=== PATIENT | male | born 1985 | race Two or more races ===

== ENCOUNTER 2021-04-26 16:05 | Emergency (ER) | payer MEDICAID, OTHER ==
[~2021-04-26] VITALS: Ht 165.1 cm; Wt 68.0 kg
[2021-04-26 17:40] VITALS: BP 135/61
== END 2021-04-26 19:00 | disposition home or self-care (01) ==
LOC: ER 16:05
DX: J03.90 Acute tonsillitis, unspecified (principal); F17.210 Nicotine dependence, cigarettes, uncomplicated; Z20.822 Contact with and (suspected) exposure to COVID-19
CPT/HCPCS: 36415; 71045; 87426